=== PATIENT | male | born 1985 | race Caucasian/White ===

== ENCOUNTER → 2016-11-08 | Outpatient (CLI) | payer OTHER ==
--- NOTE | 2016-11-08 12:05 | REP ---
Right small finger series: Four views. History: Evaluate fracture site. Findings: Four views of the right small finger demonstrate a fracture subluxation of the distal phalanx at the DIP joint of the fifth digit. There is a fracture through the dorsal aspect of the base of the distal phalanx. This triangular fracture fragment is well aligned with respect to the middle phalanx. The remainder of the distal phalanx is subluxed anteriorly and there is some override along the volar aspect of the middle phalanx. The edges of the fracture appear to have sclerotic margins suggesting a subacute or chronic lesion. It is a new finding when compared with right wrist radiographs from September 07, 2010. The lesion appears to be an extensor tendon avulsion fracture from the base of the distal phalanx. Impression: Fracture subluxation distal phalanx small finger at the DIP joint with volar override, and 2-3 mm of volar displacement. The margins of the fracture appear to have sclerotic edges suggesting a chronic or subacute injury. Signed by Michele Burnett MD 11/08/2016 12:38 P
== END ==
LOC: M RAD 09:23
PROVIDERS: ATTEND Surgery
DX: S62.666A Nondisplaced fracture of distal phalanx of right little finger, initial encounter for closed fracture (principal); X58.XXXA Exposure to other specified factors, initial encounter; Y92.9 Unspecified place or not applicable; Y93.9 Activity, unspecified; Y99.9 Unspecified external cause status

== ENCOUNTER → 2017-02-23 | Outpatient (REF) | payer OTHER | LOC: M LAB REF 10:36 | PROVIDERS: ATTEND Surgery | DX: R56.9 Unspecified convulsions (principal); Z51.81 Encounter for therapeutic drug level monitoring ==